=== PATIENT | male | born 2000 | race Caucasian/White ===

== ENCOUNTER 2020-07-18 17:00 | Emergency (ER) | payer BC, SELFPAY ==
[2020-07-18 17:35] VITALS: BP 130/79; PULSE 78; RESP 20; TEMP 36.9; O2SAT 97; BMI 33.9
--- NOTE | 2020-07-18 17:48 | HMH.EDUTC ---
[facility] [place] Disposition Clinical Impression: Exposure to COVID-19 virus Disposition: Home, Self-Care Condition on Discharge: Good Instructions: Preventing the Spread of Coronavirus Discharge Instructions Additional Instructions: Drink plenty of fluids. Take tylenol for pain or fever. Return if you begin to have difficulty breathing. Follow up with your regular doctor. GO TO THE ER FOR ANY WORSENING SYMPTOMS Referrals: Pancho Titus MD [Primary Care Provider] - Time of Disposition: 17:49 Medical Decision Making - Medical Records Medical records reviewed: No: I reviewed the patient's medical records. - Jose Inquiry Pt receiving controlled substance: No Orders (Tests/Meds): ORDERS Category Date Time Status Covid-19 Nasal PCR Sendout [facility] 07/18/20 17:40 Received [facility] [place] HPI - General Stated complaint: covid test Time Seen by Provider: 07/18/20 17:48 - History of Present Illness Provider Complaint: He was exposed to covid at his job. He denies any symptoms at this time. - Related Data Previous Rx's Medication Instructions Recorded Sulfamethoxazole/Trimethoprim 1 each PO BID 10 Days #20 tab 02/11/18 [Bactrim DS tablet] Allergies Allergy/AdvReac Type Severity Reaction Status Date / Time AMOXICILLIN Allergy Unknown Uncoded 08/16/17 15:07 [facility] History - Hepatitis A Screen Attestation statement:: This patient has been screened for Hepatitis A risk factors. I have reviewed the patient's past medical history: Yes - Social History Alcohol Intake: never ROS Obtained: Yes All systems reviewed & no additional complaints - Constitutional Constitutional: Reports system reviewed and no additional complaints, except as docu - Eyes Eyes: Reports system reviewed and no additional complaints, except as docu - ENT Ears, Nose, Mouth, and Throat: Reports system reviewed and no additional complaints, except as docu - Cardiovascular Cardiovascular: Reports system reviewed and no additional complaints, except as docu - Respiratory Respiratory: Yes system reviewed and no additional complaints, except as docu - Gastrointestinal Gastrointestingal: Reports: system reviewed and no additional complaints, except as docu Physical Exam - General General appearance: alert, in no apparent distress - Head Head exam: atraumatic, normocephalic, normal inspection - Eye Eye exam: Present: normal appearance, PERRL, EOMI - ENT ENT exam: Present: normal exam, normal oropharynx, mucous membranes moist, TM's normal bilaterally, normal external ear exam - Neck Neck exam: Present: normal inspection, full ROM, trachea midline. Absent: meningismus, lymphadenopathy - Chest Chest inspection: Present: normal inspection, symmetric chest wall rise. Absent: tenderness - Respiratory Respiratory exam: Present: normal lung sounds bilaterally. Absent: respiratory distress - Cardiovascular Cardiovascular exam: Present: regular rate, normal rhythm. Absent: JVD - Abdominal Exam Abdominal exam: Present: soft, normal bowel sounds. Absent: distention, tenderness, guarding - Extremities Exam Extremities exam: Present: normal inspection, full ROM, normal capillary refill. Absent: calf tenderness - Back Exam Back exam: Present: normal inspection. Absent: tenderness - Neurological Exam Neurological exam: Present: alert, oriented X3 - Psychiatric Psychiatric exam: Present: normal affect, normal mood - Skin Skin exam: Present: warm, dry, intact, normal color - Lymphatic Lymphatic Findings: no adenopathy
[2020-07-18 18:01] VITALS: BP 130/79; PULSE 78; RESP 20; TEMP 36.9; O2SAT 97
[2020-07-20 09:38] LABS: Covid-19 Nasal PCR Sendout UK Detected
--- NOTE | 2020-07-20 10:06 | PC.NURSE ---
PATIENT NOTIFIED OF POSITIVE COVID TEST AT THIS TIME
== END 2020-07-18 18:04 | disposition home or self-care (01) ==
PROVIDERS: Emergency Provider Nurse Practitioner Family; PCP Internal Medicine Adolescent Medicine
DX: U07.1 COVID-19 (principal)
CPT/HCPCS: 99201; U0003

== ENCOUNTER 2021-07-05 15:40 | Emergency (ER) | payer BC, SELFPAY ==
[2021-07-05 17:05] VITALS: BP 138/72; PULSE 87; RESP 16; TEMP 37.2; O2SAT 98; BMI 33.9
--- NOTE | 2021-07-05 17:26 | HMH.EDUTC ---
[facility] [place] Clinical Impression: Exposure to COVID-19 virus, Visit for TB skin test Disposition: Home, Self-Care Condition on Discharge: Good Instructions: DI for COVID-19 (Suspected or Confirmed ), Preventing the Spread of Coronavirus Discharge Instructions Additional Instructions: Drink plenty of fluids. Take tylenol for pain or fever. Return if you begin to have difficulty breathing. Follow up with your regular doctor. GO TO THE ER FOR ANY WORSENING SYMPTOMS Quarantine until you know the results of your covid-19 test. If it is positive, the health department should call you and give you further instructions about your length of Quarantine and other things. Notify your school or workplace of your results and follow their instructions regarding return to work/school. Referrals: Provider,Referral, MD [Primary Care Provider] - Time of Disposition: 17:44 Medical Decision Making - Medical Records Medical records reviewed: No: I reviewed the patient's medical records. - Jose Inquiry Pt receiving controlled substance: No Vital Signs: 07/05/21 17:05 Temperature 99 F Temperature Source Oral Pulse Rate [Left] 87 Respiratory Rate 16 Blood Pressure [Right Arm] 138/72 Blood Pressure Mean [Right Arm] 94 02 Sat by Pulse Oximetry 98 Orders (Tests/Meds): ED MEDICATIONS Discontinued Medications Generic Name Dose Route Start Last Admin Trade Name Joeq PRN Reason Stop Dose Admin Tuberculin PPD 5 units 07/05/21 17:26 07/05/21 17:27 Tuberculin 5 Units/0.1ml 1ml Vial ID 07/05/21 17:27 5 units ONCE ONE Administration ORDERS Category Date Time Status Covid-19 Nasal PCR ([facility]) Routine Lab 07/05/21 17:03 Received [facility] [place] - General Stated complaint: covid and tb test Time Seen by Provider: 07/05/21 17:26 Mode of Arrival: Ambulatory Source of Information: Patient Limitations: No Limitations Description of Symptoms (Recalled from Triage Doc. by RN): pt exposed to covid positive mother yesterday. pt also needs a TB test. HEENT Symptoms (Recalled from RN notes): No Resp Symptoms (Recalled from RN notes): No Skin Symptoms (Recalled from RN notes): No MS Symptoms (Recalled from RN notes): No Functional Status (Recalled from RN notes): na - History of Present Illness Provider Complaint: He has been exposed to covid-19 in his home. His mother currently has covid-19. She developed symptoms 2 days ago and tested positive yesterday. He has not been vaccinated against covid-19. He also needs a tb skin test for his school. - Related Data Previous Rx's Medication Instructions Recorded Sulfamethoxazole/Trimethoprim 1 each PO BID 10 Days #20 tab 02/11/18 [Bactrim DS tablet] Allergies Allergy/AdvReac Type Severity Reaction Status Date / Time AMOXICILLIN Allergy Unknown Uncoded 08/16/17 15:07 - Worker's Comp Is this a Worker's Comp case?: No [facility] History - Hepatitis A Screen Drug use history?: No High risk sexual behaviors?: No History of sexually transmitted infection?: No Currently employed?: No Childcare worker?: No Do you have indoor plumbing?: Yes Do you have electricity?: Yes Attestation statement:: This patient has been screened for Hepatitis A risk factors. I have reviewed the patient's past medical history: Yes - Social History Alcohol Intake: never Occupational Status: other ROS Obtained: Yes All systems reviewed & no additional complaints - Constitutional Constitutional: Reports system reviewed and no additional complaints, except as docu - Eyes Eyes: Reports system reviewed and no additional complaints, except as docu - ENT Ears, Nose, Mouth, and Throat: Reports system reviewed and no additional complaints, except as docu - Cardiovascular Cardiovascular: Reports system reviewed and no additional complaints, except as docu - Respiratory Respiratory: Reports system reviewed and no additional complaints, except as docu
[2021-07-05 18:02] VITALS: BP 138/72; PULSE 87; RESP 16; TEMP 36.9
== END 2021-07-05 18:04 | disposition home or self-care (01) ==
PROVIDERS: Emergency Provider Nurse Practitioner Family
DX: Z20.822 Contact with and (suspected) exposure to COVID-19 (principal); Z11.1 Encounter for screening for respiratory tuberculosis
CPT/HCPCS: 86580; 90471; 99202; C9803; G0463; U0003; U0005

== ENCOUNTER → 2021-07-09 15:58 | Outpatient (CLI) | payer BC, SELFPAY | PROVIDERS: PCP Internal Medicine Adolescent Medicine; Visit Provider Nurse Practitioner | DX: Z20.822 Contact with and (suspected) exposure to COVID-19 (principal) | CPT/HCPCS: C9803; U0003; U0005 ==

== ENCOUNTER → 2021-07-22 17:51 | Outpatient (CLI) | payer BC, SELFPAY ==
[2021-07-22 18:30] VITALS: BMI 27.1
== END ==
PROVIDERS: PCP Nurse Practitioner Family; Visit Provider Nurse Practitioner Family
DX: Z11.1 Encounter for screening for respiratory tuberculosis (principal)
CPT/HCPCS: 86580